=== PATIENT | female | born 1980 | race Caucasian/White ===

== ENCOUNTER → 2022-12-17 | Outpatient (CLI) | payer BC, SELFPAY ==
[2022-12-17 12:36] LABS: Rheumatoid Factor < 10.0 IU/mL (<15)
[2022-12-19 14:57] LABS: Anti-Nuclear Antibody Test Negative (.)
== END | disposition home or self-care (01) ==
PROVIDERS: PCP Nurse Practitioner Family; Referring Provider Dermatology; Visit Provider Dermatology
DX: L40.8 Other psoriasis (principal); M31.0 Hypersensitivity angiitis
CPT/HCPCS: 36415; 86038; 86431